=== PATIENT | male | born 2005 | race Caucasian/White ===

== ENCOUNTER → 2024-01-24 13:03 | Outpatient (REF) | payer BC, SELFPAY | LOC: RCS 13:03 | PROVIDERS: ATTENDING PHYSICIAN Internal Medicine Cardiovascular Disease; FAMILY PHYSICIAN Pediatrics | DX: R07.89 Other chest pain (principal); R06.02 Shortness of breath; R00.2 Palpitations | CPT/HCPCS: 93017; 93306 ==